=== PATIENT | female | born 1960 | race Caucasian/White ===

== ENCOUNTER 2017-04-04 14:22 | Emergency (ER) | payer OTHER ==
[2017-04-04] MEDS ORDERED: SODIUM CHLORIDE 2,000 ML IV ONE (14:39)
[2017-04-04] MEDS ORDERED: DEXTROSE 50%-WATER - 25 GM/50 ML VIAL IVPUSH ONE (14:41)
--- NOTE | 2017-04-04 14:51 | PDOC ---
History of Present Illness - General Stated Complaint: Depression Time Seen by Provider: 04/04/17 14:26 History Source: Patient, Family Exam Limitations: No Limitations - History of Present Illness Initial Comments: 04/04/17 14:46 56-year-old female with history of high cholesterol and anxiety on when necessary Xanax presents brought in by her family with emotional distress after the sudden of her 22-year-old daughter 3 days ago. Patient's daughter was involved in a car accident, was found that on scene and the patient has been tearful and distressed since then, has not eaten anything and has had only minimal fluid intake. Patient has been surrounded by family and does not expressed thoughts of hurting herself or attempted to hurt herself, today the patient took a dose of her Xanax 0.5 mg about 1 hour prior to arrival with some relief/somnolence. There is a driscoll scheduled for 7 PM tonight and the family has concerns about bringing her there as they're worried about her being very dehydrated, so they bring her to the emergency department. Patient denies any focal complaints of chest pain or difficulty breathing, she is clearly tearful and depressed but denies any thoughts of hurting herself. Past History - Past Medical History Allergies/Adverse Reactions: Allergies Allergy/AdvReac Type Severity Reaction Status Date / Time No Known Allergies Allergy Verified 04/04/17 15:05 Home Medications: Ambulatory Orders Alprazolam [Xanax] 1 - 2 tab PO Q8H PRN #14 tablet MDD 6 04/04/17 Atorvastatin Ca [Lipitor] 20 mg PO HS 04/04/17 Oxycodone HCl/Acetaminophen [Percocet 10-325 mg Tablet] 1 tab PO DAILY 04/04/17 Hypercholesterolemia: Yes Psychiatric Problems: Yes (ANXIETY) - Surgical History Orthopedic Surgery: No - Psycho/Social/Smoking Cessation Hx Anxiety: Yes Suicidal Ideation: No Smoking Status: Yes Smoking History: Never smoked Number of Cigarettes Smoked Daily: 1 Hx Alcohol Use: No Drug/Substance Use Hx: No Substance Use Type: None Review of Systems - Review of Systems Constitutional: No: Chills, Fever Respiratory: No: Cough, Shortness of Breath Cardiac (ROS): No: Chest Pain, Syncope ABD/GI: No: Nausea, Vomiting Psychiatric: Yes: Depression All Other Systems: Reviewed and Negative *Physical Exam - Physical Exam Comments: 04/04/17 14:49 Vital signs stable. GENERAL: The patient is emotionally distressed, tearful/crying. HEAD: Normal with no signs of trauma. EYES: PERRL, EOMI, sclera anicteric, conjunctiva clear with no pallor. ENT: oropharynx clear without exudates. Dry mucous membranes NECK: Normal range of motion, supple without lymphadenopathy, JVD, or masses. LUNGS: Breath sounds equal, clear to auscultation bilaterally. No wheeze/ crackles. HEART: Regular rate and rhythm without ectopy/murmur, normal S1 and S2 without murmur or rub. ABDOMEN: Soft/nontender/nondistended. BS wnl. No guarding or rebound. No palpable masses. No hepatosplenomegaly. EXTREMITIES: Normal range of motion, no edema. 2+ distal pulses. No cords, erythema, or tenderness. NEUROLOGICAL: Cranial nerves II through XII grossly intact. Normal speech, normal gait. PSYCH: Tearful/distressed SKIN: Warm, Dry, no rashes or lesions noted. Heart Score/ECG Review #1 ECG reviewed & interpreted by me at: 16:29 General ECG Interpretation: Sinus Rhythm, Normal Rate (59), Normal Intervals ( qtc 451), No acute ischemic changes ED Treatment Course - LABORATORY CBC & Chemistry Diagram: 04/04/17 15:06 04/04/17 15:06 Medical Decision Making - Medical Decision Making 04/04/17 14:51 56-year-old female with history of high cholesterol presents with severe emotional distress 2/2 the sudden of her 22y/o daughter. Pt is understandably grief-stricken but not a threat to herself. Family brings pt to ED because she is dehydrated and they feel she won't be strong enough to make it to the scheduled driscoll that is being held for her daughter julio. Dehydrated on exam. Pt took Xanax 0.5mg prior to arrival and is sleepy but arousable. check electrolytes, trop/ekg given severe emotional distress IVF rehydration no further benzo at this time given she is already somnolent from prior xanax. not an acute threat to herself, she is surrounded by family and denying desire to hurt herself. reassess: goal of care with family is to rehydrate so she can attend the driscoll this evening. 04/04/17 16:54 Feeling much better after IVF and dextrose, family agrees more at her baseline. Remains asleep but communicating with her family, still denies intentions of hurting herself and is aware her other 2 daughters need her. CBC wnl, EKG wnl. Chem pending, dispo accordingly. Has completed her previous xanax rx, will send new rx to pharmacy. 04/04/17 17:06 Now alert and ambulating. Pt and family request d/c as they need to prepare to attend the driscoll at 7pm. lytes still pending but given the circumstances will discharge now and f/u results. *DC/Admit/Observation/Transfer Diagnosis at time of Disposition: Dehydration, Grief at loss of child - Discharge Dispostion Condition at time of disposition: Fair - Prescriptions Prescriptions: Alprazolam [Xanax] 1 - 2 tab PO Q8H PRN #14 tablet MDD 6 PRN Reason: Anxiety - Referrals Referrals: Cheri Lazo MD [Staff Physician] - - Patient Instructions Printed Discharge Instructions: Post-traumatic Stress Disorder, DI for Depression -- Adult Additional Instructions: Activity as tolerated. Stay hydrated and advance your diet even though you may not have much of an appetite. It's important that you take in calories for your own nutrition and strength. Continue your medications as previously prescribed by your physician. Take Xanax 1-2 pills at a time up to three times per day as needed for severe anxiety. Rely on your family and friends during this difficult time. Grieving is normal, but if you have any concerns about hurting yourself, return to the emergency department right away. You should follow up with your primary doctor and/or a psychiatrist (consider calling Dr. Lazo) as soon as possible regarding today's emergency department visit. Return to the emergency department for any new or concerning symptoms, particularly severe depression or thoughts of hurting yourself, dehydration or weakness, chest pain or trouble breathing.
[2017-04-04 15:05] VITALS: BP 123/98; PULSE 78; TEMP 98.2
[2017-04-04] MEDS ORDERED: DEXTROSE 50%-WATER 50 ML DISP.SYRIN ONE (16:09)
[2017-04-04 16:35] LABS: BASOPHIL 0.3 % (0-2.0); EOSINOPHIL 0.8 % (0-4.5); MCH 29.2 pg (25.7-33.7); MEAN CELL VOLUME 88.5 fl (80-96); MEAN PLT VOLUME 9.1 fl (7.5-11.1); NEUTROPHILS 65.1 % (42.8-82.8); PLATELET COUNT 229 K/MM3 (134-434); RDW 15.7 % (11.6-15.6); WHITE BLOOD COUNT 7.5 K/mm3 (4.0-10.0)
[2017-04-04 17:09] LABS: ALBUMIN 3.9 g/dl (3.4-5.0); ANION GAP 10 (8-16); BILIRUBIN,TOTAL 0.9 mg/dL (0.2-1.0); CALCIUM 9.1 mg/dL (8.5-10.1); CO2 24 mmol/L (21-32); CREATININE 0.9 mg/dL (0.55-1.02); GLUCOSE,RANDOM 65 mg/dL (74-106); SGPT/ALT 31 U/L (12-78); TOT PROT 7.7 g/dl (6.4-8.2)
[2017-04-04 17:12] LABS: ALK PHOS 84 U/L (45-117); CPK 108 IU/L (26-192)
[2017-04-04 17:14] LABS: MAGNESIUM 2.3 mg/dL (1.8-2.4); SGOT/AST 23 U/L (15-37)
[2017-04-04 18:27] LABS: TROPONIN I < 0.02 ng/ml (0.00-0.05)
--- NOTE | 2017-04-05 11:53 | EKG ---
Test Reason : Blood Pressure : / mmHG Vent. Rate : 059 BPM Atrial Rate : 059 BPM P-R Int : 118 ms QRS Dur : 088 ms QT Int : 456 ms P-R-T Axes : 058 050 057 degrees QTc Int : 451 ms SINUS BRADYCARDIA OTHERWISE NORMAL ECG WHEN COMPARED WITH ECG OF 03-JUN-2012 05:42, NO SIGNIFICANT CHANGE WAS FOUND Confirmed by ANTONIO ALCANTAR MD ([id number]) on 04/05/2017 11:52:27 AM Referred By: Confirmed By:ANTONIO ALCANTAR MD
== END 2017-04-04 17:37 | disposition home or self-care (01) ==
LOC: SUPCPDRO 14:22 → JER 14:22
PROC: 3E0337Z Introduction of Electrolytic and Water Balance Substance into Peripheral Vein, Percutaneous Approach (ICD-10-PCS; principal; 2017-04-04)
PROC: 3E0337Z Introduction of Electrolytic and Water Balance Substance into Peripheral Vein, Percutaneous Approach (ICD-10-PCS; 2017-04-04)
DX: F43.23 Adjustment disorder with mixed anxiety and depressed mood (principal); E78.00 Pure hypercholesterolemia, unspecified
CPT/HCPCS: 36415; 80053; 83735; 84484; 85025; 93005; 93010; 99282-25

== ENCOUNTER 2017-05-23 10:05 | Emergency (ER) | payer OTHER ==
[2017-05-23 10:12] VITALS: PULSE 77; TEMP 98.1; BMI 27.4
[2017-05-23] MEDS ORDERED: KETOROLAC TROMETHAMINE 30 MG/1 ML VIAL IVPUSH ONE (10:55)
[2017-05-23] MEDS ORDERED: SODIUM CHLORIDE 1,000 ML IV STA (10:55)
--- NOTE | 2017-05-23 11:14 | PDOC ---
History of Present Illness - General Chief Complaint: Pain Stated Complaint: FEVER, RT SIDE PAIN Time Seen by Provider: 05/23/17 10:20 History Source: Patient Exam Limitations: No Limitations - History of Present Illness Initial Comments: 05/23/17 11:00 56-year-old female presents to the ED with complaints of right upper quadrant pain associated with mild nausea and subjective fever for the past week. Patient also complaining of a reddened area to the right posterior thigh which she noticed about 6 days ago. Patient states took Tylenol yesterday for pain and fever which seemed to alleviate her symptoms but since symptoms still continue she decided come to the ER. Patient states has been under a lot of stress after losing her daughter a month ago but denies any change in weight, history of immunosuppression, or recent sick contacts. Patient denies history of GI disorders including gallstones with states history of high cholesterol. Timing/Duration: 1 week Severity: moderate Associated Symptoms: reports: fever/chills, nausea/vomiting Past History - Travel Traveled outside of the country in the last 30 days: No Close contact w/someone who was outside of country & ill: No - Past Medical History Allergies/Adverse Reactions: Allergies Allergy/AdvReac Type Severity Reaction Status Date / Time No Known Allergies Allergy Verified 05/23/17 10:10 Home Medications: Ambulatory Orders Cephalexin [Keflex] 500 mg PO BID #14 capsule 05/23/17 HTN: Yes Hypercholesterolemia: Yes Psychiatric Problems: Yes (ANXIETY) Other medical history: HERNIATED DISC. - Surgical History Orthopedic Surgery: No - Suicide/Smoking/Psychosocial Hx Smoking Status: Yes Smoking History: Never smoked Have you smoked in the past 12 months: No Number of Cigarettes Smoked Daily: 1 Hx Alcohol Use: No Drug/Substance Use Hx: No Substance Use Type: None Patient Lives Alone: No Review of Systems - Review of Systems Able to Perform ROS?: Yes Constitutional: Yes: Chills, Fever, Weakness HEENTM: No: Symptoms Reported Respiratory: No: Symptoms reported Cardiac (ROS): No: Symptoms Reported ABD/GI: Yes: Nausea, Abdominal cramping : No: Symptoms Reported Musculoskeletal: No: Symptoms Reported Integumentary: Yes: Erythema, Lumps Neurological: Yes: Weakness Endocrine: No: Symptoms Reported Hematologic/Lymphatic: No: Symptoms Reported *Physical Exam - Vital Signs Last Vital Signs Temp Pulse Resp BP Pulse Ox 98.1 F 77 18 144/78 98 05/23/17 10:06 05/23/17 10:06 05/23/17 10:06 05/23/17 10:06 05/23/17 10:06 - Physical Exam General Appearance: Yes: Nourished, Appropriately Dressed. No: Apparent Distress HEENT: positive: EOMI, DANTE, Pharynx Normal. negative: Pale Conjunctivae Neck: positive: Supple Respiratory/Chest: positive: Lungs Clear, Normal Breath Sounds. negative: Respiratory Distress, Accessory Muscle Use Extremity: positive: Normal Capillary Refill. negative: Pedal Edema Integumentary: positive: Erythema (10 centimeters circular erythematous warm area to the mid aspect of right hamstring. Area dry Surrounding skin intact . ) Neurologic: positive: Normal Mood/Affect, Motor Strength 5/5 (ambulatory) ED Treatment Course - LABORATORY CBC & Chemistry Diagram: 05/23/17 11:22 05/23/17 11:22 - RADIOLOGY Radiology Studies Ordered: Category Date Time Status GALLBLADDER US [US] Stat Ultrasound 05/23/17 10:55 Ordered Medical Decision Making - Medical Decision Making 05/23/17 11:39 Patient here for evaluation of right upper quadrant pain along with redness to the right posterior thigh concerning for cellulitis. Patient also concerning for cholecystitis versus pancreatitis versus stones. Patient ordered for CBC, comp, lipase, urinalysis, urine culture, IV fluids, Toradol 05/23/17 14:01 Gallbladder ultrasound shows hepatic steatosis with no evidence of cholelithiasis, acute cholecystitis or biliary duct dilatation. Patient be discharged home with Keflex and told to follow-up with match maker in regards to her hepatic steatosis. Laboratory Tests 05/23/17 05/23/17 05/23/17 11:22 11:22 11:22 WBC 6.1 Hgb 13.5 Hct 41.1 Plt Count 199 Neutrophils % 74.0 Sodium 136 Potassium 4.4 Chloride 103 Carbon Dioxide 28 Anion Gap 5 L BUN 8 D Creatinine 1.0 Creat Clearance w eGFR 57.56 Random Glucose 98 D Calcium 8.6 Magnesium 2.6 H Total Bilirubin 0.6 D AST 56 H D ALT 85 H D Lipase 107 Urine Blood Urine Nitrite Ur Leukocyte Esterase Urine RBC Urine WBC 05/23/17 11:55 WBC Hgb Hct Plt Count Neutrophils % Sodium Potassium Chloride Carbon Dioxide Anion Gap BUN Creatinine Creat Clearance w eGFR Random Glucose Calcium Magnesium Total Bilirubin AST ALT Lipase Urine Blood 2+ H Urine Nitrite Negative Ur Leukocyte Esterase Pending Urine RBC 2 Urine WBC 3 *DC/Admit/Observation/Transfer Diagnosis at time of Disposition: Abscess of right leg - Discharge Dispostion Disposition: HOME Condition at time of disposition: Good - Prescriptions Prescriptions: Cephalexin [Keflex] 500 mg PO BID #14 capsule - Referrals Referrals: Yang Pickens MD [Primary Care Provider] - Augustine Patterson MD [Staff Physician] - - Patient Instructions Printed Discharge Instructions: DI for Skin Abscess Additional Instructions: At this time your ultrasound and blood work showed no acute findings for hepatic steatosis. I do want you to start antibiotics for the right leg abscess and observe for redness past the line. If noted please return to the nearest emergency room otherwise she may take Motrin for pain.
[2017-05-23] MEDS ORDERED: KETOROLAC TROMETHAMINE 30 MG/1 ML VIAL ONE (11:24)
[2017-05-23 11:51] LABS: BASOPHIL 0.4 % (0-2.0); EOSINOPHIL 0.9 % (0-4.5); MCH 29.7 pg (25.7-33.7); MEAN CELL VOLUME 89.9 fl (80-96); MEAN PLT VOLUME 8.6 fl (7.5-11.1); PLATELET COUNT 199 K/MM3 (134-434); RDW 14.8 % (11.6-15.6); WHITE BLOOD COUNT 6.1 K/mm3 (4.0-10.0)
[2017-05-23 12:06] LABS: URINE APPEARANCE CLOUDY; URINE BILIRUBIN NEGATIVE (NEGATIVE); URINE BLOOD 2+ (NEGATIVE); URINE COLOR YELLOW; URINE GLUCOSE (UA) NEGATIVE (NEGATIVE); URINE KETONE NEGATIVE (NEGATIVE); URINE NITRITE NEGATIVE (NEGATIVE); URINE PROTEIN NEGATIVE (NEGATIVE); URINE UROBILINOGEN NEGATIVE mg/dL (0.2-1.0)
[2017-05-23 12:14] LABS: ALBUMIN 3.6 g/dl (3.4-5.0); ANION GAP 5 (8-16); CALCIUM 8.6 mg/dL (8.5-10.1); CO2 28 mmol/L (21-32); GLUCOSE,RANDOM 98 mg/dL (74-106); MAGNESIUM 2.6 mg/dL (1.8-2.4); SGOT/AST 56 U/L (15-37); SGPT/ALT 85 U/L (12-78)
[2017-05-23 12:16] LABS: ALK PHOS 114 U/L (45-117); BILIRUBIN,TOTAL 0.6 mg/dL (0.2-1.0); TOT PROT 7.4 g/dl (6.4-8.2)
[2017-05-23 12:52] LABS: URINE HYALINE CAST 17 /lpf; URINE MUCUS RARE; URINE RBC 2 /hpf (0-3); URINE WBC 3 /hpf (3-5)
[2017-05-23 14:28] VITALS: BP 135/80
[2017-05-23 17:52] LABS: URINE LEUK ESTERASE Negative (NEGATIVE)
== END 2017-05-23 14:20 | disposition home or self-care (01) ==
LOC: JER 10:05 → SUPCPDRO 10:05 → JER 14:20
PROC: 3E0233Z Introduction of Anti-inflammatory into Muscle, Percutaneous Approach (ICD-10-PCS; principal; 2017-05-23)
DX: L02.415 Cutaneous abscess of right lower limb (principal); F41.9 Anxiety disorder, unspecified
CPT/HCPCS: 36415; 76705-TC; 80053; 81003; 81015; 83690; 83735; 85025; 87086; 99283-25

== ENCOUNTER 2017-05-28 12:53 | Observation (INO) | payer OTHER ==
[2017-05-28 13:00] VITALS: BMI 27.4
[2017-05-28] MEDS ORDERED: CLINDAMYCIN 600MG PREMIX IVPB 50 ML IVPB ONE ×2 (13:21→14:02)
--- NOTE | 2017-05-28 13:22 | PDOC ---
History of Present Illness - General Chief Complaint: Redness To Affected Area Stated Complaint: REVISIT/ RT LEG BITE Time Seen by Provider: 05/28/17 13:15 History Source: Patient - History of Present Illness Timing/Duration: reports: week Location: reports: extremities Past History - Past Medical History Allergies/Adverse Reactions: Allergies Allergy/AdvReac Type Severity Reaction Status Date / Time No Known Allergies Allergy Verified 05/28/17 12:59 Home Medications: Ambulatory Orders Cephalexin [Keflex] 500 mg PO BID #14 capsule 05/23/17 HTN: Yes Hypercholesterolemia: Yes Psychiatric Problems: Yes (ANXIETY) Other medical history: HERNIATED DISC - Surgical History Orthopedic Surgery: No - Suicide/Smoking/Psychosocial Hx Smoking Status: Yes Smoking History: Current some day smoker Have you smoked in the past 12 months: No Number of Cigarettes Smoked Daily: 1 Information on smoking cessation initiated: No Hx Alcohol Use: Yes (SOCIAL) Drug/Substance Use Hx: No Substance Use Type: None Review of Systems - Review of Systems Constitutional: No: Chills, Fever Integumentary: Yes: Erythema *Physical Exam - Vital Signs Last Vital Signs Temp Pulse Resp BP Pulse Ox 98.7 F 73 20 134/74 100 05/28/17 12:55 05/28/17 12:55 05/28/17 12:55 05/28/17 12:55 05/28/17 12:55 - Physical Exam General Appearance: Yes: Appropriately Dressed. No: Apparent Distress HEENT: positive: Normal Voice Neck: positive: Supple Respiratory/Chest: negative: Respiratory Distress Integumentary: positive: Dry, Warm, Other (8x11 cm red, hot tender area to posterior R thigh) Neurologic: positive: Fully Oriented, Alert, Normal Mood/Affect ED Treatment Course - LABORATORY CBC & Chemistry Diagram: 05/28/17 13:50 05/28/17 13:50 Medical Decision Making - Medical Decision Making 05/28/17 13:22 56-year-old female, pre-DM, not on meds, was seen in ED approximately 6 days ago for several complaints including pain and redness to posterior right thigh. Was diagnosed with cellulitis and started on keflex. Had pen suri drawn around wound and told to return to ER if redness expands. Patient here today because noticed that redness has extended beyond the pen suri despite taking abx. Reports that wound continues to be painful and also itches. Denies any fever or chills. No trauma or bite to area. No history of similar episode in the past See exam R thigh cellulitis 8x11 cm area of erythema/warmth and tenderness to posterior R thigh, no e/o abscess -pain control -IV abx -labs -m/l need admission at this time for IV abx 05/28/17 13:26 05/28/17 14:01 Case d/w coverage for Dr. Pickens and patient admitted to Dr Angel *DC/Admit/Observation/Transfer Diagnosis at time of Disposition: Cellulitis Qualifiers: Site of cellulitis: extremity Site of cellulitis of extremity: lower extremity Laterality: right Qualified Code(s): L03.115 - Cellulitis of right lower limb - Discharge Dispostion Condition at time of disposition: Good Admit: Yes - Referrals Referrals: Yang Pickens MD [Primary Care Provider] -
[2017-05-28 14:14] LABS: BASOPHIL 0.9 % (0-2.0); EOSINOPHIL 3.5 % (0-4.5); MCH 28.9 pg (25.7-33.7); MCHC 33.1 g/dl (32.0-36.0); MEAN CELL VOLUME 87.3 fl (80-96); MEAN PLT VOLUME 8.2 fl (7.5-11.1); NEUTROPHILS 60.3 % (42.8-82.8); PLATELET COUNT 323 K/MM3 (134-434); RDW 14.4 % (11.6-15.6); WHITE BLOOD COUNT 6.5 K/mm3 (4.0-10.0)
[2017-05-28 14:18] LABS: ALBUMIN 3.5 g/dl (3.4-5.0); ANION GAP 4 (8-16); CALCIUM 8.7 mg/dL (8.5-10.1); CO2 28 mmol/L (21-32); GLUCOSE,RANDOM 97 mg/dL (74-106)
[2017-05-28 14:22] LABS: ALK PHOS 140 U/L (45-117); BILIRUBIN,TOTAL 0.3 mg/dL (0.2-1.0); CREATININE 0.9 mg/dL (0.55-1.02); SGPT/ALT 58 U/L (12-78); TOT PROT 7.5 g/dl (6.4-8.2)
[2017-05-28 14:24] LABS: SGOT/AST 32 U/L (15-37)
[2017-05-28] MEDS ORDERED: SODIUM CHLORIDE 1,000 ML IV SCH (16:15)
--- NOTE | 2017-05-28 18:42 | HP ---
Admitting History and Physical - Primary Care Physician PCP: Yang Pickens - Admission Chief Complaint: Right thigh cellulitis History of Present Illness: Ms Man is a pleasant 56 year old female who came in to [facility] ER with worsening of right thigh cellulitis. She doesn't remember getting any bug bites in that area. Symptoms started 2 weeks ago. She was seen at [facility] ER on 05/23/17 for the same complaint and was given cephalexin 500 mg po BID for 1 week. She took the cephalexin for 5 days when she noticed it wasn't getting better and decided to come to the ER again. She had tactile fever although didn't not record any temperature. She also complains of being treated for situational depression recently due to passing of her young daughter 1.5 months ago. She has been on Zoloft 25 mg for past 2 years which was increased to 50 mg 1.5 months ago. She was also given alprazolam for severe anxiety which she mainly has been using it for sleep. She states she stopped her Zoloft 1 week ago for unknown reason. History Source: Patient Limitations to Obtaining History: No Limitations - Past Medical History Psych: Yes: Anxiety, Depression - Smoking History Smoking history: Current some day smoker Have you smoked in the past 12 months: No Aproximately how many cigarettes per day: 1 - Alcohol/Substance Use Hx Alcohol Use: Yes (SOCIAL) Home Medications - Allergies Allergies/Adverse Reactions: Allergies Allergy/AdvReac Type Severity Reaction Status Date / Time No Known Allergies Allergy Verified 05/28/17 12:59 - Home Medications Home Medications: Ambulatory Orders Cephalexin [Keflex] 500 mg PO BID #14 capsule 05/23/17 Review of Systems Findings/Remarks: NAD, no pain at this time, comfortable in bed, family at bedside - Review of Systems Constitutional: reports: Chills Eyes: reports: No Symptoms HENT: reports: No Symptoms Neck: reports: No Symptoms Cardiovascular: reports: No Symptoms Respiratory: reports: No Symptoms Gastrointestinal: reports: No Symptoms Genitourinary: reports: No Symptoms Breasts: reports: No Symptoms Reported Musculoskeletal: reports: No Symptoms Integumentary: reports: Erythema Neurological: reports: No Symptoms Endocrine: reports: No Symptoms Hematology/Lymphatic: reports: No Symptoms Psychiatric: reports: No Symptoms Pain Intensity: 0 Physical Examination Vital Signs: Vital Signs Temperature 98.7 F 05/28/17 12:55 Pulse Rate 62 05/28/17 14:43 Respiratory Rate 18 05/28/17 14:43 Blood Pressure 128/73 05/28/17 14:43 O2 Sat by Pulse Oximetry (%) 100 05/28/17 16:07 Constitutional: Yes: Well Nourished, No Distress, Calm Cardiovascular: Yes: Regular Rate and Rhythm Respiratory: Yes: Regular Gastrointestinal: Yes: Normal Bowel Sounds Musculoskeletal: Yes: WNL Extremities: Yes: WNL Edema: Yes (right posterior thigh) Peripheral Pulses WNL: Yes Integumentary: Yes: Erythema (mild-right posterior thigh swelling) Neurological: Yes: Alert, Oriented Psychiatric: Yes: Alert, Oriented Problem List - Problems (1) Cellulitis Assessment/Plan: -labs unremarkable -afebrile -ID consult -clindamycin 600 mg po Q8H, which can probably changed to PO in AM and discharge home. Code(s): L03.90 - CELLULITIS, UNSPECIFIED Qualifiers: Site of cellulitis: extremity Site of cellulitis of extremity: lower extremity Laterality: right Qualified Code(s): L03.115 - Cellulitis of right lower limb; L03.115 - Cellulitis of right lower limb (2) Grief at loss of child Assessment/Plan: -with sleep disturbance -trazodone 50 mg po HS, if ineffective, would maximize on it before trying another antidepressant that may also help her with sleep disturbance -educated on good sleep hygiene Code(s): F43.21 - ADJUSTMENT DISORDER WITH DEPRESSED MOOD Z63.4 - DISAPPEARANCE AND OF FAMILY MEMBER Assessment/Plan see problem list
[2017-05-28] MEDS: CLINDAMYCIN 600MG PREMIX IVPB 50 ML IVPB SCH (18:56)
[2017-05-28] MEDS: HEPARIN NA (PORCINE) 5,000 UNITS/ML 1ML VIAL SQ SCH (21:06)
[2017-05-28] MEDS: traZODone HCL 50 MG TABLET (FP) PO SCH (22:32)
[2017-05-29] MEDS: CLINDAMYCIN 600MG PREMIX IVPB 50 ML IVPB SCH ×2 (01:16→10:07)
[2017-05-29 08:02] LABS: BASOPHIL 0.7 % (0-2.0); EOSINOPHIL 3.5 % (0-4.5); MCH 28.7 pg (25.7-33.7); MCHC 32.8 g/dl (32.0-36.0); MEAN CELL VOLUME 87.3 fl (80-96); MEAN PLT VOLUME 7.4 fl (7.5-11.1); NEUTROPHILS 52.5 % (42.8-82.8); PLATELET COUNT 325 K/MM3 (134-434); RDW 14.6 % (11.6-15.6); WHITE BLOOD COUNT 5.6 K/mm3 (4.0-10.0)
[2017-05-29 08:09] LABS: ALBUMIN 3.4 g/dl (3.4-5.0); ANION GAP 8 (8-16); CALCIUM 8.7 mg/dL (8.5-10.1); CO2 29 mmol/L (21-32); GLUCOSE,RANDOM 97 mg/dL (74-106)
[2017-05-29 08:13] LABS: ALK PHOS 131 U/L (45-117); BILIRUBIN,TOTAL 0.5 mg/dL (0.2-1.0); SGOT/AST 20 U/L (15-37); SGPT/ALT 51 U/L (12-78); TOT PROT 7.2 g/dl (6.4-8.2)
--- NOTE | 2017-05-29 09:27 | CONSULT ---
Consultation: REQUESTING PROVIDER: CONSULT REQUEST: We have been asked to medically evaluate this patient for ( specify). HISTORY OF PRESENT ILLNESS: Ms Man is a pleasant 56 year old female who came in to [facility] ER with worsening of right thigh cellulitis. She doesn't remember getting any bug bites in that area. Symptoms started 2 weeks ago. She was seen at [facility] ER on 05/23/17 for the same complaint and was given cephalexin 500 mg po BID for 1 week. She took the cephalexin for 5 days when she noticed it wasn't getting better and decided to come to the ER again. She had tactile fever although didn't not record any temperature. Patient was seen today. She denies any fever, chills, N/V, the erythema on the posterior right thigh 8X11 cm ,warm compare to the other side. REVIEW OF SYSTEMS: back pain PHYSICAL EXAMINATION Vital Signs - 24 hr 05/28/17 05/28/17 05/28/17 14:43 16:07 18:00 Temperature 97.9 F Pulse Rate 62 61 Respiratory 18 18 Rate Blood Pressure 128/73 120/54 O2 Sat by Pulse 100 100 Oximetry (%) 05/28/17 05/29/17 05/29/17 23:48 00:07 05:51 Temperature 98.0 F 98.0 F Pulse Rate 59 L 58 L Respiratory 18 18 Rate Blood Pressure 127/65 111/74 O2 Sat by Pulse 100 Oximetry (%) GENERAL: Awake, alert, and fully oriented, in no acute distress. HEAD: Normal with no signs of trauma. EYES: sclera anicteric, conjunctiva clear. ENT: Moist mucous membranes. LUNGS: Breath sounds equal, clear to auscultation bilaterally. No wheezes, and no crackles. No accessory muscle use. HEART: Regular rate and rhythm, normal S1 and S2 without murmur, rub or gallop. ABDOMEN: Soft, nontender, not distended, normoactive bowel sounds, no guarding, LOWER EXTREMITIES: 2+ pulses, warm, well-perfused. No calf tenderness. No peripheral edema. 8x8 cm erythema on the back of right thigh. NEUROLOGICAL: good mentation PSYCHIATRIC: Cooperative. Good eye contact. with depression and anxiety SKIN: Warm, dry, no rashes or lesions noted. 8x8 cm warm erythema on the back of right thigh. Laboratory Results - last 24 hr 05/29/17 05/29/17 06:00 06:00 WBC 5.6 RBC 4.48 Hgb 12.8 Hct 39.1 MCV 87.3 MCH 28.7 MCHC 32.8 RDW 14.6 Plt Count 325 MPV 7.4 L Neutrophils % 52.5 Lymphocytes % 37.2 D Monocytes % 6.1 Eosinophils % 3.5 Basophils % 0.7 Sodium 141 Potassium 4.7 Chloride 104 Carbon Dioxide 29 Anion Gap 8 BUN 9 Creatinine 1.0 Creat Clearance w eGFR 57.56 Random Glucose 97 Calcium 8.7 Total Bilirubin 0.5 D AST 20 D ALT 51 Alkaline Phosphatase 131 H Total Protein 7.2 Albumin 3.4 Active Medications Generic Name Dose Route Start Last Admin Trade Name Freq PRN Reason Stop Dose Admin Heparin Sodium (Porcine) 5,000 unit 05/28/17 22:00 05/28/17 21:06 Heparin - SQ 5,000 unit BID RICARDO Administration Clindamycin Phosphate 50 mls @ 100 mls/hr 05/28/17 19:00 05/29/17 01:16 Cleocin 600 Mg Premix Ivpb - IVPB 100 mls/hr Q8H-IV RICARDO Administration Trazodone HCl 50 mg 05/28/17 22:00 05/28/17 22:32 Desyrel - PO 50 mg HS RICARDO Administration CBC, BMP 05/29/17 06:00 05/29/17 06:00 ASSESSMENT/PLAN: Assesemtn : Right thigh cellulites : presented with fever, chills, Nausea but no vomiting,, night sweats, over night she denies any of these symptoms depression 2/2 loss of child one month ago. Plan: Start Hydrocortisone 1% topical cream TID ESR, CRP Lyme titers Dc clindamycin, start Ceftriaxone 2 gm IVbp On SSRI for depression. Dispo: We will continue to follow the patient. Thank you for this consultative opportunity.
[2017-05-29] MEDS ORDERED: ACETAMINOPHEN 325 MG TABLET (FP) ONE (09:46)
[2017-05-29] MEDS: HEPARIN NA (PORCINE) 5,000 UNITS/ML 1ML VIAL SQ SCH ×2 (10:07→22:20)
--- NOTE | 2017-05-29 10:09 | EKG ---
Test Reason : Blood Pressure : / mmHG Vent. Rate : 059 BPM Atrial Rate : 059 BPM P-R Int : 132 ms QRS Dur : 070 ms QT Int : 420 ms P-R-T Axes : 062 052 044 degrees QTc Int : 415 ms SINUS BRADYCARDIA POSSIBLE LEFT ATRIAL ENLARGEMENT BORDERLINE ECG WHEN COMPARED WITH ECG OF 04-APR-2017 16:29, NO SIGNIFICANT CHANGE WAS FOUND Confirmed by GRAY MAGALLON MD ([id number]) on 05/29/2017 10:09:10 AM Referred By: Confirmed By:GARY MAGALLON MD
[2017-05-29] MEDS ORDERED: HYDROCORTISONE 1% TOPICAL CREAM 30 GM TUBE TP STA (11:27)
--- NOTE | 2017-05-29 11:55 | PN ---
Teaching Attending Note Name of Resident: Shady Ibrahim ATTENDING PHYSICIAN STATEMENT I saw and evaluated the patient. I reviewed the resident's note and discussed the case with the resident. I agree with the resident's findings and plan as documented. SUBJECTIVE: developed itching right posterior thigh, used antibiotic cream then redness and fevers seen in ED one week ago, round circular lesion on posterior thigh marked and given keflex returned because area is enlarging remains pruritic no history of MRSA, no prior skin lesions lives in garden apt denies insect bites or tick bites OBJECTIVE: Vital Signs Period Temp Pulse Resp BP Sys/Ahmadi Pulse Ox Last 24 Hr 97.9 F-98.7 F 58-73 18-20 111-134/54-74 100-100 cor-rrr lungs clear abd soft,nt no inguinal adenopathy 8 by 10 cm circular erythematous lesion on back of right thigh CBC, BMP 05/29/17 06:00 05/29/17 06:00 ASSESSMENT AND PLAN: cellulitis r/o lyme blood cultures esr crp lyme titer rocephin Problem List - Problems (1) Cellulitis Code(s): L03.90 - CELLULITIS, UNSPECIFIED Qualifiers: Site of cellulitis: extremity Site of cellulitis of extremity: lower extremity Laterality: right Qualified Code(s): L03.115 - Cellulitis of right lower limb; L03.115 - Cellulitis of right lower limb
[2017-05-29] MEDS: CEFTRIAXONE 2 GM in DEXTROSE 5%-WATER - 100 ML IVPB SCH (15:59)
[2017-05-29] MEDS ORDERED: hydrOXYzine HCL 25 MG TABLET (FP) PO PRN (16:13)
--- NOTE | 2017-05-29 16:16 | PN ---
Progress Note, Physician Chief Complaint: AWAKE ALERT FAMILY BEDSIDE C/O INSOMNIA ITCHING - Current Medication List Current Medications: Active Medications Heparin Sodium (Porcine) (Heparin -) 5,000 unit SQ BID [facility] Last Admin: 05/29/17 10:07 Dose: 5,000 unit Hydroxyzine HCl (Atarax -) 25 mg PO TID PRN PRN Reason: FOR ITCHING Ceftriaxone Sodium 2 gm/ (Dextrose) 100 mls @ 200 mls/hr IVPB DAILY [facility] Last Admin: 05/29/17 15:59 Dose: 200 mls/hr Trazodone HCl (Desyrel -) 50 mg PO HS [facility] Last Admin: 05/28/17 22:32 Dose: 50 mg - Objective Vital Signs: Vital Signs Temperature 98.1 F 05/29/17 15:46 Pulse Rate 56 L 05/29/17 15:46 Respiratory Rate 18 05/29/17 15:46 Blood Pressure 146/88 05/29/17 15:46 O2 Sat by Pulse Oximetry (%) 100 05/29/17 08:00 Constitutional: Yes: Mild Distress Eyes: Yes: WNL HENT: Yes: WNL Neck: Yes: WNL Cardiovascular: Yes: WNL Respiratory: Yes: WNL Gastrointestinal: Yes: WNL Genitourinary: Yes: WNL Musculoskeletal: Yes: WNL Extremities: Yes: Erythema Edema: Yes Edema: RLE: 1+ Peripheral Pulses WNL: Yes Integumentary: Yes: Erythema Wound/Incision: Yes: Dressing Removed, Reddened Neurological: Yes: WNL ...Motor Strength: WNL Psychiatric: Yes: WNL Labs: CBC, BMP 05/29/17 06:00 05/29/17 06:00 Problem List - Problems (1) Cellulitis Code(s): L03.90 - CELLULITIS, UNSPECIFIED Qualifiers: Site of cellulitis: extremity Site of cellulitis of extremity: lower extremity Laterality: right Qualified Code(s): L03.115 - Cellulitis of right lower limb; L03.115 - Cellulitis of right lower limb (2) Abscess of right leg Code(s): L02.415 - CUTANEOUS ABSCESS OF RIGHT LOWER LIMB Assessment/Plan IV ABX ID CONSULT APPRECIATED TRAZADONE AND ATARAX PRN AWAIT CX
[2017-05-29] MEDS: traZODone HCL 50 MG TABLET (FP) PO SCH (22:20)
--- NOTE | 2017-05-30 07:37 | CONSULT ---
Consultation: REQUESTING PROVIDER: CONSULT REQUEST: We have been asked to medically evaluate this patient for ( specify). HISTORY OF PRESENT ILLNESS: Patient was seen and examined at bedside. She denies any fever, chills, N/V/D/C , the erythema cellulitis on posterior thigh is improving. and less tender to touch. REVIEW OF SYSTEMS Noncontributory PHYSICAL EXAMINATION Vital Signs - 24 hr 05/29/17 05/29/17 05/29/17 08:00 09:00 15:46 Temperature 98.1 F 98.1 F Pulse Rate 69 56 L Respiratory 18 18 18 Rate Blood Pressure 122/69 146/88 O2 Sat by Pulse 100 Oximetry (%) 05/29/17 05/29/17 05/30/17 16:00 17:16 06:00 Temperature 98.8 F 97.9 F Pulse Rate 61 55 L Respiratory 20 20 20 Rate Blood Pressure 108/66 101/55 O2 Sat by Pulse 100 Oximetry (%) GENERAL: Awake, alert, and fully oriented, in no acute distress. HEAD: Normal with no signs of trauma. EYES: sclera anicteric, conjunctiva clear. ENT: Moist mucous membranes. LUNGS: Breath sounds equal, clear to auscultation bilaterally. No wheezes, and no crackles. No accessory muscle use. HEART: Regular rate and rhythm, normal S1 and S2 without murmur, rub or gallop. ABDOMEN: Soft, nontender, not distended, normoactive bowel sounds, no guarding, LOWER EXTREMITIES: 2+ pulses, warm, well-perfused. No calf tenderness. No peripheral edema. 8x8 cm erythema on the back of right thigh. NEUROLOGICAL: good mentation PSYCHIATRIC: Cooperative. Good eye contact. with depression and anxiety SKIN: Warm, dry, no rashes or lesions noted. 8x8 cm warm erythema on the back of right thigh. Laboratory Results - last 24 hr 05/29/17 05/29/17 05/29/17 06:00 06:00 11:50 WBC 5.6 RBC 4.48 Hgb 12.8 Hct 39.1 MCV 87.3 MCH 28.7 MCHC 32.8 RDW 14.6 Plt Count 325 MPV 7.4 L Neutrophils % 52.5 Lymphocytes % 37.2 D Monocytes % 6.1 Eosinophils % 3.5 Basophils % 0.7 ESR Sodium 141 Potassium 4.7 Chloride 104 Carbon Dioxide 29 Anion Gap 8 BUN 9 Creatinine 1.0 Creat Clearance w eGFR 57.56 Random Glucose 97 Calcium 8.7 Total Bilirubin 0.5 D AST 20 D ALT 51 Alkaline Phosphatase 131 H C-Reactive Protein 2.3 H Total Protein 7.2 Albumin 3.4 05/29/17 11:50 WBC RBC Hgb Hct MCV MCH MCHC RDW Plt Count MPV Neutrophils % Lymphocytes % Monocytes % Eosinophils % Basophils % ESR 60 H Sodium Potassium Chloride Carbon Dioxide Anion Gap BUN Creatinine Creat Clearance w eGFR Random Glucose Calcium Total Bilirubin AST ALT Alkaline Phosphatase C-Reactive Protein Total Protein Albumin Active Medications Generic Name Dose Route Start Last Admin Trade Name Freq PRN Reason Stop Dose Admin Heparin Sodium (Porcine) 5,000 unit 05/28/17 22:00 05/29/17 22:20 Heparin - SQ 5,000 unit BID RICARDO Administration Hydroxyzine HCl 25 mg 05/29/17 16:13 Atarax - PO TID PRN FOR ITCHING Ceftriaxone Sodium 2 gm/ 100 mls @ 200 mls/hr 05/29/17 14:00 05/29/17 15:59 Dextrose IVPB 200 mls/hr DAILY RICARDO Administration Trazodone HCl 50 mg 05/28/17 22:00 05/29/17 22:20 Desyrel - PO 50 mg HS RICARDO Administration CBC, BMP 05/29/17 06:00 05/29/17 06:00 ASSESSMENT/PLAN: Right thigh cellulites : presented with fever, chills, Nausea but no vomiting,, night sweats, over night she denies any of these symptoms depression 2/2 loss of child one month ago. Plan: Start Hydrocortisone 1% topical cream TID ESR, CRP elevated 60,2.3 Lyme titers Dc clindamycin, start Ceftriaxone 2 gm IVbp On SSRI for depression , no suicidal thoughts,F/U as out patient, Dispo: We will continue to follow the patient. Thank you for this consultative opportunity. Problem List - Problems (1) Cellulitis of thigh Code(s): L03.119 - CELLULITIS OF UNSPECIFIED PART OF LIMB
[2017-05-30] MEDS ORDERED: PT OWN MED DRAWER 7, Y5N ONE (11:16)
[2017-05-30] MEDS: HEPARIN NA (PORCINE) 5,000 UNITS/ML 1ML VIAL SQ SCH (11:26)
[2017-05-30] MEDS: CEFTRIAXONE 2 GM in DEXTROSE 5%-WATER - 100 ML IVPB SCH ×2 (12:05→12:43)
--- NOTE | 2017-05-30 14:04 | PN ---
Teaching Attending Note Name of Resident: Shady Ibrahim ATTENDING PHYSICIAN STATEMENT I saw and evaluated the patient. I reviewed the resident's note and discussed the case with the resident. I agree with the resident's findings and plan as documented. SUBJECTIVE: feeling better less itching, less pain OBJECTIVE: Vital Signs Period Temp Pulse Resp BP Sys/Ahmadi Pulse Ox Last 24 Hr 97.9 F-98.8 F 55-81 18-20 101-146/55-88 100-100 less erythema or the posterior thigh CBC, BMP 05/29/17 06:00 05/29/17 06:00 lyme serology pending ASSESSMENT AND PLAN: if she continues to improve suggest switch to po ceftin 500 bid for 14 days to treat both cellulitis or possible lyme lyme serology still pending Problem List - Problems (1) Cellulitis Code(s): L03.90 - CELLULITIS, UNSPECIFIED Qualifiers: Site of cellulitis: extremity Site of cellulitis of extremity: lower extremity Laterality: right Qualified Code(s): L03.115 - Cellulitis of right lower limb; L03.115 - Cellulitis of right lower limb
[2017-05-30 14:57] VITALS: BP 116/51; PULSE 68; TEMP 97.9
--- NOTE | 2017-05-30 15:00 | DS ---
Physical Examination Vital Signs: Vital Signs Temperature 97.9 F 05/30/17 14:00 Pulse Rate 68 05/30/17 14:00 Respiratory Rate 20 05/30/17 14:00 Blood Pressure 116/51 05/30/17 14:00 O2 Sat by Pulse Oximetry (%) 100 05/30/17 08:00 Findings/Remarks: awake , alert feeling better Constitutional: Yes: No Distress Eyes: Yes: WNL HENT: Yes: WNL Neck: Yes: WNL Cardiovascular: Yes: WNL Respiratory: Yes: WNL Gastrointestinal: Yes: WNL Musculoskeletal: Yes: WNL Extremities: Yes: Erythema Edema: No Peripheral Pulses WNL: Yes Integumentary: Yes: Erythema Wound/Incision: Yes: Open to air Neurological: Yes: WNL ...Motor Strength: WNL Psychiatric: Yes: WNL Labs: CBC, BMP 05/29/17 06:00 05/29/17 06:00 Discharge Summary Reason For Visit: CELLULITIS Current Active Problems Back pain (Acute) Cellulitis (Acute) Cellulitis of thigh (Acute) Procedures: Principal: LABS/CX Hospital Course: ADMITTED ACUTE CELLULITIS RIGHT LOWER EXTREMITY, TREATED IV ABX, CHANGED TO PO CEFTIN BID 14 DAYS F/U OUTPATIENT WITH PMD AND F/U LYME TITERS Condition: Good - Instructions Diet, Activity, Other Instructions: REG SEE DR HORNE 1 WEEK FOR LYME TITER FOLLOW UP Referrals: Yang Horne MD [Primary Care Provider] - Disposition: HOME - Home Medications Comprehensive Discharge Medication List: Ambulatory Orders Cephalexin [Keflex] 500 mg PO BID #14 capsule 05/23/17
[2017-05-30] MEDS ORDERED: CEFUROXIME AXETIL 500 MG TABLET PO SCH (22:00)
[2017-05-31 16:18] LABS: IgG P18 Absent (.); IgG P23 Present (.); IgG P28 Absent (.); IgG P30 Absent (.); IgG P39 Absent (.); IgG P41 Present (.); IgG P45 Absent (.); IgG P58 Absent (.); IgG P66 Absent (.); IgG P93 Absent (.); IgM P23 Present (.); IgM P39 Absent (.); IgM P41 Present (.); LYME IGM WB INTERPRE Positive (.)
== END 2017-05-30 17:31 | disposition home or self-care (01) ==
LOC: JER 12:53 → JERBED 14:00 → J8W 15:33
PROVIDERS: ADMIT Family Medicine; ATTEND Family Medicine
PROC: 3E03329 Introduction of Other Anti-infective into Peripheral Vein, Percutaneous Approach (ICD-10-PCS; principal; 2017-05-28)
PROC: 3E013GC Introduction of Other Therapeutic Substance into Subcutaneous Tissue, Percutaneous Approach (ICD-10-PCS; 2017-05-28)
PROC: 3E0337Z Introduction of Electrolytic and Water Balance Substance into Peripheral Vein, Percutaneous Approach (ICD-10-PCS; 2017-05-28)
DX: L03.115 Cellulitis of right lower limb (principal); L02.415 Cutaneous abscess of right lower limb; I10 Essential (primary) hypertension; E78.00 Pure hypercholesterolemia, unspecified; F41.9 Anxiety disorder, unspecified; F17.210 Nicotine dependence, cigarettes, uncomplicated; R73.03 Prediabetes; Z63.4 Disappearance and death of family member; F43.21 Adjustment disorder with depressed mood
CPT/HCPCS: 36415; 71010-TC; 80053; 84703; 85025; 85651; 86140; 86618; 93005; 93010; 99282-25; G0378; J1644

== ENCOUNTER 2018-09-25 18:38 | Emergency (ER) | payer OTHER ==
--- NOTE | 2018-09-25 19:03 | PDOC ---
Rapid Medical Evaluation Chief Complaint: Back Pain Time Seen by Provider: 09/25/18 19:02 Medical Evaluation: Allergies Allergy/AdvReac Type Severity Reaction Status Date / Time No Known Allergies Allergy Verified 05/28/17 12:59 09/25/18 19:02 I have performed a brief in person evaluation of this patient. CC: Back Pain HPI: Pt is a 58 YO female who states she has lower back pain. Denies injury or trauma. States that Toradol has helped her in the past. Denies urinary symptoms. PE: Skin: Clear Lungs: Clear Heart:RRR Abd: soft, nontender MS: Moves all extremities without difficulty Neuro: Alert and oriented Psych: Appropriate affect Pt will proceed to [facility] for further evaluation. Discharge Disposition - Diagnosis Back pain Qualifiers: Back pain location: low back pain Chronicity: acute Back pain laterality: unspecified Sciatica presence: without sciatica Qualified Code(s): M54.5 - Low back pain - Referrals - Patient Instructions - Post Discharge Activity
[2018-09-25 19:05] VITALS: BP 137/71; PULSE 69; TEMP 98.3; BMI 27.3
[2018-09-25] MEDS ORDERED: KETOROLAC TROMETHAMINE 60 MG/2 ML VIAL IM ONE (19:23)
[2018-09-25] MEDS ORDERED: KETOROLAC TROMETHAMINE 60 MG/2 ML VIAL ONE (19:24)
--- NOTE | 2018-09-25 19:25 | PDOC ---
History of Present Illness - General Chief Complaint: Back Pain Stated Complaint: LOWER BACK PAIN Time Seen by Provider: 09/25/18 19:02 - History of Present Illness Initial Comments: 09/25/18 19:23 58-year-old female without comorbidities presents for evaluation of lower back pain with posterior lateral leg radiculopathy times one week without any precipitating traumatic event. She is under the care of pain management but her appointment is not for another 2 weeks for an epidural injection. She has no systemic symptoms or loss of bowel or bladder function Past History - Past Medical History Allergies/Adverse Reactions: Allergies Allergy/AdvReac Type Severity Reaction Status Date / Time No Known Allergies Allergy Verified 09/25/18 19:03 Home Medications: Ambulatory Orders traZODone HCL [Desyrel -] 50 mg PO HS #30 tablet 05/30/17 Cyclobenzaprine HCl [Flexeril 10 mg] 10 mg PO HS PRN #10 tablet 09/25/18 HTN: Yes Hypercholesterolemia: Yes Psychiatric Problems: Yes (ANXIETY) - Suicide/Smoking/Psychosocial Hx Smoking Status: Yes Smoking History: Never smoked Have you smoked in the past 12 months: No Number of Cigarettes Smoked Daily: 1 Hx Alcohol Use: No Drug/Substance Use Hx: No Substance Use Type: None Review of Systems - Review of Systems Constitutional: No: Fever Musculoskeletal: Yes: Back Pain *Physical Exam - Vital Signs Last Vital Signs Temp Pulse Resp BP Pulse Ox 98.3 F 69 18 137/71 99 09/25/18 19:03 09/25/18 19:03 09/25/18 19:03 09/25/18 19:03 09/25/18 19:03 - Physical Exam Comments: 09/25/18 19:24 Lumbar spine skin color and temperature are normal range of motion is slightly limited. There is moderate right and left paralumbar musculature spasm and tenderness. 5 out of 5 strength in bilateral lower extremities without gross sensorimotor deficits. Thighs and calves soft and nontender. Moderate Sedation - Procedure Monitoring Vital Signs: Procedure Monitoring Vital Signs Temperature 98.3 F 09/25/18 19:03 Pulse Rate 69 09/25/18 19:03 Respiratory Rate 18 09/25/18 19:03 Blood Pressure 137/71 09/25/18 19:03 O2 Sat by Pulse Oximetry (%) 99 09/25/18 19:03 *DC/Admit/Observation/Transfer Diagnosis at time of Disposition: Lumbar back pain with radiculopathy affecting left lower extremity Back pain Qualifiers: Back pain location: low back pain Chronicity: acute Back pain laterality: unspecified Sciatica presence: without sciatica Qualified Code(s): M54.5 - Low back pain - Discharge Dispostion Disposition: HOME Condition at time of disposition: Stable Decision to Admit order: No - Prescriptions Prescriptions: Cyclobenzaprine HCl [Flexeril 10 mg] 10 mg PO HS PRN #10 tablet PRN Reason: Muscle Spasms - Referrals Referrals: Yang Pickens MD [Primary Care Provider] - - Patient Instructions Printed Discharge Instructions: Lumbar Radiculopathy, DI for Lumbar Radiculopathy Additional Instructions: Please take the muscle relaxer as directed. Its one tablet before bedtime and will make you sleepy. Return to the emergency room for worsening of symptoms and follow-up with pain management as scheduled. - Post Discharge Activity
== END 2018-09-25 19:29 | disposition home or self-care (01) ==
LOC: JER 18:38 → JERFT 18:38
PROC: 3E0233Z Introduction of Anti-inflammatory into Muscle, Percutaneous Approach (ICD-10-PCS; principal; 2018-09-25)
DX: M54.16 Radiculopathy, lumbar region (principal); I10 Essential (primary) hypertension; E78.00 Pure hypercholesterolemia, unspecified; F41.9 Anxiety disorder, unspecified
CPT/HCPCS: 99281-25

== ENCOUNTER 2019-04-05 19:22 | Emergency (ER) | payer BC, OTHER ==
--- NOTE | 2019-04-05 19:48 | PDOC ---
Rapid Medical Evaluation Time Seen by Provider: 04/05/19 19:44 Medical Evaluation: Allergies Allergy/AdvReac Type Severity Reaction Status Date / Time No Known Allergies Allergy Verified 09/25/18 19:03 04/05/19 19:44 I have performed a brief in-person evaluation of this patient. The patient presents with a chief complaint of: Hives to upper extremities s/p bitten by fleas today Pertinent physical exam findings:stable I have ordered the following:nothing The patient will proceed to the ED for further evaluation. Discharge Disposition - Diagnosis Hives - Referrals - Patient Instructions - Post Discharge Activity
[2019-04-05 19:49] VITALS: BP 119/68; PULSE 71; TEMP 98.3; BMI 29.2
[2019-04-05] MEDS ORDERED: diphenhydrAMINE HCL 50 MG CAPSULE PO ONE (20:49)
--- NOTE | 2019-04-05 20:51 | PDOC ---
History of Present Illness - General Chief Complaint: Bite Stated Complaint: BUG BITES BILAT ARMS X 2 DAYS Time Seen by Provider: 04/05/19 19:44 History Source: Patient Exam Limitations: No Limitations Past History - Past Medical History Allergies/Adverse Reactions: Allergies Allergy/AdvReac Type Severity Reaction Status Date / Time No Known Allergies Allergy Verified 09/25/18 19:03 Home Medications: Ambulatory Orders traZODone HCL [Desyrel -] 50 mg PO HS #30 tablet 05/30/17 Cyclobenzaprine HCl [Flexeril 10 mg] 10 mg PO HS PRN #10 tablet 09/25/18 COPD: No HTN: Yes Hypercholesterolemia: Yes Psychiatric Problems: Yes (ANXIETY) - Suicide/Smoking/Psychosocial Hx Smoking Status: Yes Smoking History: Never smoked Have you smoked in the past 12 months: No Number of Cigarettes Smoked Daily: 1 Information on smoking cessation initiated: No Hx Alcohol Use: Yes Drug/Substance Use Hx: No Substance Use Type: None *Physical Exam - Vital Signs Last Vital Signs Temp Pulse Resp BP Pulse Ox 98.3 F 71 17 119/68 100 04/05/19 19:47 04/05/19 19:47 04/05/19 19:47 04/05/19 19:47 04/05/19 19:47 - Physical Exam General Appearance: No: Apparent Distress Respiratory/Chest: positive: Lungs Clear, Normal Breath Sounds. negative: Respiratory Distress Cardiovascular: positive: Regular Rhythm, Regular Rate, S1, S2. negative: Murmur Integumentary: positive: Rash (blanching erythematous lesions, circular in size , along B/L forearms, few on BLE, slight redness along upper back; no other lesions noted; no evidence of erythema migrans). negative: Hives, Petechiae, Swelling, Ecchymosis, Bruising Neurologic: positive: Alert, Normal Mood/Affect Medical Decision Making - Medical Decision Making 58 y/o F with hx of Lyme's disease (2 years ago, treated), HLD, depression presents s/p getting bit by fleas 2 days ago while in her backyard. Got bit along B/L forearms and legs; states rash is very itchy. Denies fever, sob, cp, abd pain, vomiting. No one else in family has rash. States dogs also have fleas. No evidence of lyme's Also not suspicious for scabies Given benadryl stable for dc 04/05/19 20:51 *DC/Admit/Observation/Transfer Diagnosis at time of Disposition: Rash - Discharge Dispostion Disposition: HOME Condition at time of disposition: Stable Decision to Admit order: No - Referrals Referrals: Yagn Pickens MD [Primary Care Provider] - 2 Days - Patient Instructions Printed Discharge Instructions: DI for Insect Bites and Stings Additional Instructions: Thank you for choosing [facility]. It was a pleasure taking care of you. Take Benadryl 50 mg every 6-8 hrs as needed for itching You can also apply topical hydrocortisone cream over rash twice a day Follow-up with your doctor in 2 days Return to the Emergency Department if your symptoms worsen or persist, you have fever, shortness of breath, chest pain, severe abdominal pain, vomiting, worsening of rash or other concerning symptoms. - Post Discharge Activity
[2019-04-05] MEDS ORDERED: diphenhydrAMINE HCL 25 MG CAPSULE (FP) PO ONE (20:52)
== END 2019-04-05 21:00 | disposition home or self-care (01) ==
LOC: JERFT 19:22
DX: L50.9 Urticaria, unspecified (principal); S40.862A Insect bite (nonvenomous) of left upper arm, initial encounter; S40.861A Insect bite (nonvenomous) of right upper arm, initial encounter; W57.XXXA Bitten or stung by nonvenomous insect and other nonvenomous arthropods, initial encounter; Y93.89 Activity, other specified; Y99.8 Other external cause status; Y92.038 Other place in apartment as the place of occurrence of the external cause
CPT/HCPCS: 99281-25